=== PATIENT | female | born 1960 | race Caucasian/White ===

== ENCOUNTER 2017-09-14 05:35 | Day surgery (SDC) | payer BC ==
[~2017-09-14] VITALS: Ht 162.6 cm; Wt 90.7 kg
[~2017-09-14 05:35] MED LIST: VITAMIN D5000 UNIT PO
--- NOTE | 2017-09-14 09:11 | NUR ---
09/14/17 0911 Catherine Pitts 0904 - PT ARRIVED TO PACU. MAINTAINING OWN AIRWAY. PT AWAKE AND REPORTING NAUSEA (SEE MAR FOR MEDICATION GIVEN). PT DENIES PAIN.
[2017-09-14] MEDS ORDERED: IBUPROFEN600 MG PO (09:17)
[2017-09-14] MEDS ORDERED: OXYCODON-ACETA1 EAC2 PO (09:17)
[2017-09-14] MEDS ORDERED: MAPAP325 MG PO (09:17)
--- NOTE | 2017-09-14 11:41 | NUR ---
VERBAL DC INSTRUCTIONS GIVEN IN PRESENCE OF PT'S SPOUSE AND THEY BOTH VERBALIZE UNDERSTANDING. PT TRANSFERS SELF FROM STRETCHER TO WC AND DOES THAT WELL.
--- NOTE | 2017-09-15 10:03 | OR ---
[facility] [address], [place] [address] Signed DATE OF OPERATION: 09/14/2017 SURGEON: Jared Feliciano MD PREOPERATIVE DIAGNOSES: Symptomatic gallstones. Chronic cholecystitis. POSTOPERATIVE DIAGNOSES: Symptomatic gallstones. Chronic cholecystitis. PROCEDURES: 1. Laparoscopic cholecystectomy with intraoperative cholangiogram. 2. Surgeon-directed fluoroscopy. SURGEON: Jared Feliciano MD ANESTHESIA: General endotracheal (Ade Rose CRNA) and local 20 mL of 0.25% Marcaine with epinephrine. 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 Several years ago, she was having right upper abdominal pain and presented to a surgeon in [place], [place], who confirmed chronic cholecystitis with gallstones on ultrasound. She was told at the time that she had "hemangiomas" of the liver, which apparently made her provider reticent to recommend cholecystectomy. Since that time, she has been episodically suffering with right subcostal pain and epigastric pain following meals. Her symptoms have worsened enough that she presented for further consideration of cholecystectomy. Her evaluation includes a gallbladder ultrasound, recently which showed stones and I did not see any worrisome hemangiomas anywhere near the gallbladder bed, for which any concern for cholecystectomy would be made in my opinion. On that basis, I have recommended cholecystectomy, preferred by laparoscopic approach. The risks of bleeding, infection, bile duct injury, need for open procedure and other unforeseen complications were reviewed in detail. She understood and wished to proceed. FINDINGS: Electronically Signed By: JARED FELICIANO MD 09/15/17 1003 PATIENT NAME: KORY PRINGLE OPERATIVE REPORT DATE OF : 60 PHYSICIAN: JARED FELICIANO MD REPORT #: [id number] REPORT IS CONFIDENTIAL AND NOT TO BE RELEASED WITHOUT AUTHORIZATION [facility] [address], [place] [address] Signed The gallbladder was chronically inflamed. There were 3 large gallstones at least 2 cm in size each. Cholangiogram was normal. The cystic duct inserted on the left side of the hepatic duct, but there was no sign of filling defect or other problem. The liver appeared normal. There were no other findings of concern. DESCRIPTION OF PROCEDURE: The patient was brought to the operating room, given a general endotracheal anesthetic. Preoperative antibiotic Ancef was given and sequential compression device stockings used, heparin was subcutaneously administered as well. After satisfactory general endotracheal anesthesia, the abdomen was prepared with a chlorhexidine solution and draped sterilely. An infraumbilical incision was made and using an open Jose cannula technique, pneumoperitoneum was achieved to a level of 14 mmHg of carbon dioxide gas. Intra-abdominal inspection showed no sign of ascites or carcinomatosis. Three additional trocars were placed in usual configuration in the subxiphoid, right midclavicular, and right anterior axillary line. The gallbladder was elevated, cephalad, and found to be somewhat tethered in the infundibulum. With blunt dissection, the area of tethering was dissected free, freeing the gallbladder more and allowing for better elevation of the gallbladder cephalad. A small bile leak occurred in the infundibulum, but no leakage of stones. This was ultimately secured with clips and an Endoloop tie. Further retraction of the infundibulum allow for dissection in the triangle of Calot identifying well the cystic duct, which was lengthy and easily demonstrated. A clip was applied across the gallbladder cystic duct junction and a transverse choledochotomy made in the cystic duct. Retrograde milking of the cystic duct showed no sign of stones. Using the Vivar type cholangiocatheter, intraoperative cholangiography was undertaken showing free flow of contrast in the biliary tree with prompt emptying into the duodenum. There was no sign of abnormality other than the cystic duct inserting on the left side of the common bile duct. This was a common anatomic variant and of no concern. The cystic duct was triply clipped and divided and the gallbladder dissected free in a retrograde fashion using electrocautery. The gallbladder was placed in an endobag and extracted through the infraumbilical port site without problem. The gallbladder was opened on the back table by the circulating nurse and found to have 3 large gallstones at least 2 cm in size. No sign of neoplasm of the mucosa. Irrigation was undertaken in subhepatic space. Once I cleared and assured that the hepatic bed had no bleeding or other problem including bile leak, the trocars were then removed. There was no sign of bleeding at the trocar sites. The infraumbilical fascial incision was reapproximated with interrupted 0 Vicryl suture. All wounds were copiously irrigated with saline solution and the skin closed with interrupted 3-0 Vicryl. A 20 mL of 0.25% Marcaine with epinephrine had been injected prior to closure of the skin. Steri-Strips were applied. The patient was ultimately extubated and transferred to recovery room in good condition Electronically Signed By: JARED FELICIANO MD 09/15/17 1003 PATIENT NAME: KORY PRINGLE OPERATIVE REPORT DATE OF : 60 PHYSICIAN: JARED FELICIANO MD REPORT #: [id number] REPORT IS CONFIDENTIAL AND NOT TO BE RELEASED WITHOUT AUTHORIZATION [facility] [address] [place], [place] [address] Signed having suffered no complications. Sponge, needle, and instrument counts reported as correct x3. MD GERARDO Parker/[place] /[id number] cc: Edmundo Perez DO Electronically Signed By: JARED FELICIANO MD 09/15/17 1003 PATIENT NAME: KORY PRINGLE OPERATIVE REPORT DATE OF : 60 PHYSICIAN: JARED FELICIANO MD REPORT #: [id number] REPORT IS CONFIDENTIAL AND NOT TO BE RELEASED WITHOUT AUTHORIZATION
== END 2017-09-14 11:40 | disposition home or self-care (01) ==
LOC: DS 05:35
PROVIDERS: Surgery
PROC: BF12YZZ Fluoroscopy of Gallbladder using Other Contrast (ICD-10-PCS; 2017-09-14)
PROC: 0FT44ZZ Resection of Gallbladder, Percutaneous Endoscopic Approach (ICD-10-PCS; principal; 2017-09-14 06:45)
DX: K80.10 Calculus of gallbladder with chronic cholecystitis without obstruction (principal); Z87.891 Personal history of nicotine dependence; Z90.89 Acquired absence of other organs; Z98.890 Other specified postprocedural states; Z79.899 Other long term (current) drug therapy
CPT/HCPCS: 00790; 74300; J0690; J1100; J1644; J1885; J2250; J2405; J2704; J3010; J7120; Q9967

== ENCOUNTER 2024-12-30 19:39 | Emergency (ER) | payer BC ==
[~2024-12-30] VITALS: Ht 162.6 cm; Wt 95.5 kg
[~2024-12-30 19:39] MED LIST changes: +IBUPROFEN600 MG PO; +MAPAP325 MG PO; +OXYCODON-ACETA1 EAC2 PO
[2024-12-30] MEDS ORDERED: LACTATED RINGER'S 1,000 ML IV ONE (20:00)
[2024-12-30 20:02] LABS: BASOPHILS 0.6 % (0-2); HEMATOCRIT 43.1 % (35.0-50.0); HEMOGLOBIN 14.7 g/dL (12.0-18.0); LYMPHOCYTES 18.5 % (24-44); MCH 29.3 (27-36); MCHC 34.1 g/dl (30-36); MONOCYTES 9.7 % (0-12); NEUTROPHILS 71.2 % (39-80); PLATELET COUNT 236 K/uL (140-440); RBC 5.02 M/ul (4.3-5.7); RDW 14.2 (10.5-15.0)
[2024-12-30 20:11] LABS: INR 1.07 (0.80-1.30); PROTIME 13.3 Sec (11.2-14.2)
[2024-12-30 20:19] LABS: ALBUMIN 3.6 g/dL (3.4-5.0); ALBUMIN/GLOBULIN RATIO 1.09 (1.1-2.4); ANION GAP 14.2 (7-21); BILIRUBIN, TOTAL 0.4 mg/dL (0.2-1.0); BUN/CREATININE RATIO 13.17 (6.0-28.6); CALCIUM 8.6 mg/dL (8.5-10.1); CREATININE, SERUM 1.29 mg/dL (0.55-1.02); POTASSIUM 4.2 mmol/L (3.5-5.1); PROTEIN, TOTAL 6.9 g/dL (6.4-8.2)
[2024-12-30 21:40] LABS: BILIRUBIN, URINE NEGATIVE (negative); BLOOD/HGB, URINE TRACE-I (Negative); KETONE, URINE TRACE (Negative); LEUK ESTERASE, URINE NEGATIVE (negative); NITRITE, URINE NEGATIVE (negative)
[2024-12-30 21:47] LABS: CRYSTALS, URINE NONE SEEN (0-1+); EPITHELIAL CELLS, URINE SQUAMOUS 1+ /lpf (0-1+)
[2024-12-30 21:48] LABS: BACTERIA, URINE RARE /hpf (negative); CASTS, URINE HYALINE 2+ \\lpf; COLLECTION TYPE, URINE CLEAN CATCH; REFLEX CULTURE, URINE No (No)
[2024-12-30] MEDS ORDERED: ONDANSETRON ODT8 MG PO (22:08)
[2024-12-30] MEDS ORDERED: LOMOTIL TABLET1 EACH PO (22:08)
[2024-12-30] MEDS ORDERED: ONDANSETRON 4 MG HOME.PACK SL ONE (22:15)
[2024-12-30 22:32] VITALS: BP 124/72
--- NOTE | 2024-12-31 14:17 | EKG ---
[facility] [address] [facility] [place] [address] Signed Sinus bradycardia Otherwise normal ECG No previous ECGs available Confirmed by Rick Rodgers MD () on 12/31/2024 2:16:50 PM Electronically Signed By: RICK RODGERS MD 12/31/24 1417 PATIENT NAME: KORY PRINGLE Electrocardiogram DATE OF : 60 PHYSICIAN: RICK RODGERS MD REPORT #: [id number] REPORT IS CONFIDENTIAL AND NOT TO BE RELEASED WITHOUT AUTHORIZATION
== END 2024-12-30 22:30 | disposition home or self-care (01) ==
LOC: ED 19:39
PROVIDERS: Family Medicine
DX: R55 Syncope and collapse (principal); S00.83XA Contusion of other part of head, initial encounter; W19.XXXA Unspecified fall, initial encounter; E86.0 Dehydration
CPT/HCPCS: 36415; 70486; 80053; 81001; 83735; 84484; 85025; 85610; 93005; 93010; 96360; 99284-25; A9270; J7121

== ENCOUNTER 2025-03-14 22:54 | Emergency (ER) | payer BC ==
[~2025-03-14] VITALS: Ht 162.6 cm; Wt 95.7 kg
[~2025-03-14 22:54] MED LIST changes: +LOMOTIL TABLET1 EACH PO; +ONDANSETRON ODT8 MG PO
[2025-03-14] MEDS ORDERED: CYCLOBENZAPRINE HCL 10 MG TAB PO ONE (23:00)
[2025-03-14 23:10] LABS: BLOOD/HGB, URINE NEGATIVE (Negative); KETONE, URINE NEGATIVE (Negative); LEUK ESTERASE, URINE NEGATIVE (negative); NITRITE, URINE NEGATIVE (negative)
[2025-03-14] MEDS ORDERED: IBUPROFEN 800 MG TAB PO ONE (23:30)
[2025-03-14] MEDS ORDERED: LIDOCAINE HCL 4% 1 EACH PATCH TD ONE (23:30)
[2025-03-14] MEDS ORDERED: CYCLOBENZAPRINE HCL 10 MG HOME.PACK PO ONE (23:45)
[2025-03-14] MEDS ORDERED: LIDODERM1 EACH TOP (23:49)
[2025-03-14] MEDS ORDERED: CYCLOBENZAPRINE10 MG PO (23:50)
[2025-03-15 00:20] VITALS: BP 141/98
[2025-03-15] MEDS ORDERED: LIDOCAINE PATCH REMOVAL 1 EA TD SCH (21:00)
== END 2025-03-15 00:20 | disposition home or self-care (01) ==
LOC: ED 22:54
PROVIDERS: Internal Medicine
DX: S39.012A Strain of muscle, fascia and tendon of lower back, initial encounter (principal); X58.XXXA Exposure to other specified factors, initial encounter
CPT/HCPCS: 81003; 99283; A9270

== ENCOUNTER 2025-07-31 10:51 | Emergency (ER) | payer BC ==
[~2025-07-31] VITALS: Ht 162.6 cm; Wt 102.7 kg
[~2025-07-31 10:51] MED LIST changes: +CYCLOBENZAPRINE10 MG PO; +LIDODERM1 EACH TOP
[2025-07-31] MEDS ORDERED: LOSARTAN POTASSIUM 50 MG TAB PO ONE (11:45)
[2025-07-31 12:09] LABS: BASOPHILS 0.6 % (0.1-1.2); EOSINOPHILS 1.3 % (0.7-5.8); LYMPHOCYTES 29.3 % (19.3-51.7); MCH 29.3 PG (25.6-32.2); MCHC 31.8 g/dL (32.2-35.5); MCV 92.1 fL (79.4-94.8); MONOCYTES 6.3 % (4.7-12.5); NEUTROPHILS 62.4 % (34.0-71.1); RBC 4.54 M/uL (3.93-5.22)
[2025-07-31 12:27] LABS: ALT (SGPT) 23.0 U/L (14-59); AST (SGOT) 17.0 U/L (15-37); GLOMERULAR FILTRATION RATE,EST 79.0 mL/min (>60); PROTEIN, TOTAL 6.6 g/dL (6.4-8.2); UREA NITROGEN 15.0 mg/dL (7-18)
[2025-07-31 13:42] VITALS: BP 140/83
--- NOTE | 2025-08-02 07:24 | EKG ---
[facility] [address] [facility] [place], [place] [address] Signed Normal sinus rhythm Normal ECG Confirmed by Jasvir Shetty DO ([id number]) on 08/02/2025 7:24:05 AM Electronically Signed By: JASVIR SHETTY DO 08/02/25 0724 PATIENT NAME: KORY PRINGLE Electrocardiogram DATE OF : 60 PHYSICIAN: JASVIR SHETTY DO REPORT #: [id number] REPORT IS CONFIDENTIAL AND NOT TO BE RELEASED WITHOUT AUTHORIZATION
== END 2025-07-31 13:42 | disposition home or self-care (01) ==
LOC: ED 10:51
PROVIDERS: Emergency Medicine
DX: I10 Essential (primary) hypertension (principal); Z87.891 Personal history of nicotine dependence
CPT/HCPCS: 36415; 80053; 85025; 93005; 93010; 99283